=== PATIENT | male | born 1975 | race Two or more races ===

== ENCOUNTER → 2019-08-04 | Outpatient (CLI) | payer OTHER ==
[2019-08-04 09:34] LABS: BASO % 1 % (0-3); EOS # 0.1 x10^3/uL (0.0-0.7); EOS % 1 % (0-3); HEMATOCRIT 42.7 % (39.0-53.0); HEMOGLOBIN 14.4 g/dL (13.0-17.5); LYMPH # 2.3 x10^3/uL (1.0-4.8); LYMPH % 42 % (24-48); MEAN CORPUSCULAR HEMOGLOBIN 30 pg (25-35); MEAN CORPUSCULAR HGB CONC 34 g/dL (31-37); MEAN CORPUSCULAR VOLUME 90 fL (79-100); MONO # 0.5 x10^3/uL (0.0-1.1); MONO % 9 % (0-9); NEUT # 2.6 x10^3/uL (1.8-7.7); NEUT % 47 % (31-73); PLATELET COUNT 226 x10^3/uL (140-400); RED BLOOD COUNT 4.75 x10^6/uL (4.30-5.70); RED CELL DISTRIBUTION WIDTH 13.1 % (11.5-14.5); WHITE BLOOD COUNT 5.5 x10^3/uL (4.0-11.0)
[2019-08-04 09:59] LABS: ALBUMIN/GLOBULIN RATIO 1.2 (1.0-1.7); CHOLESTEROL/HDL RATIO 3.1; CREATININE 1.3 mg/dL (0.7-1.3); GFR 60.2; POTASSIUM 4.1 mmol/L (3.5-5.1); TOTAL BILIRUBIN 2.2 mg/dL (0.2-1.0); TOTAL PROTEIN 7.4 g/dL (6.4-8.2)
[2019-08-04 10:14] LABS: FREE T4 0.79 ng/dL (0.76-1.46); THYROID STIM HORMONE (TSH) 6.621 uIU/mL (0.358-3.74)
[2019-08-04 18:09] LABS: T3 TOTAL 80 ng/dL (71-180); TESTOSTERONE TOTAL 415 ng/dL (264-916); THYROPEROXIDASE ANTIBODY 167 IU/mL (0-34)
== END | disposition home or self-care (01) ==
LOC: LAB 08:55
PROVIDERS: ATTEND Family Medicine
DX: Z13.220 Encounter for screening for lipoid disorders (principal); E03.9 Hypothyroidism, unspecified; E80.4 Gilbert syndrome; R53.83 Other fatigue
CPT/HCPCS: 36415; 80053; 80061; 84403; 84439; 84443; 84480; 84481; 85025; 86376

== ENCOUNTER → 2019-09-15 | Outpatient (CLI) | payer OTHER ==
--- NOTE | 2019-09-15 15:40 | RAD ---
MR of the right lower extremity HISTORY: Gastrocnemius tendon strain. TECHNIQUE: Routine multiplanar sequences are obtained through the region of the calf. FINDINGS: The exam is centered at the proximal through mid tibia. Minimal hazy edema signal within the medial soleus muscle and within the medial lateral gastrocnemius muscle. No evidence of intramuscular rupture or tear. No organized hematoma. No significant intermuscular fluid or blood product accumulation. No evidence of acute fracture or aggressive bone destruction. No evidence of periosteal reaction. Small suprapatellar joint effusion is seen. IMPRESSION: 1. Mild edema within the posterior compartment calf musculature, suggesting a mild strain or contusion. No evidence of muscle tear or hematoma. 2. No acute bone abnormality. Electronically signed by: Don Pendleton MD (09/15/2019 3:37 PM) [id number]
== END | disposition home or self-care (01) ==
LOC: MRI 14:11
PROVIDERS: ATTEND Orthopaedic Surgery
DX: S86.111A Strain of other muscle(s) and tendon(s) of posterior muscle group at lower leg level, right leg, initial encounter (principal); M25.461 Effusion, right knee; X58.XXXA Exposure to other specified factors, initial encounter; Y93.89 Activity, other specified; Y92.89 Other specified places as the place of occurrence of the external cause; Y99.8 Other external cause status
CPT/HCPCS: 73718

== ENCOUNTER → 2019-10-07 | Outpatient (CLI) | payer OTHER ==
[2019-10-07 09:50] LABS: CHOLESTEROL/HDL RATIO 2.8
[2019-10-07 09:56] LABS: FREE T4 1.13 ng/dL (0.76-1.46); THYROID STIM HORMONE (TSH) 0.79 uIU/mL (0.358-3.74)
== END | disposition home or self-care (01) ==
LOC: LAB 08:45
PROVIDERS: ATTEND Family Medicine
DX: E03.9 Hypothyroidism, unspecified (principal); E78.00 Pure hypercholesterolemia, unspecified
CPT/HCPCS: 36415; 80061; 84439; 84443; 84480; 84481

== ENCOUNTER → 2019-12-30 | Outpatient (CLI) | payer OTHER ==
[2019-12-30 10:17] LABS: FREE T4 0.81 ng/dL (0.76-1.46); THYROID STIM HORMONE (TSH) 34.468 uIU/mL (0.358-3.74)
== END | disposition home or self-care (01) ==
LOC: LAB 09:27
PROVIDERS: ATTEND Family Medicine
DX: E03.9 Hypothyroidism, unspecified (principal)
CPT/HCPCS: 36415; 84439; 84443

== ENCOUNTER → 2020-03-02 | Outpatient (CLI) | payer OTHER ==
[2020-03-02 11:43] LABS: FREE T4 1.15 ng/dL (0.76-1.46); THYROID STIM HORMONE (TSH) 3.622 uIU/mL (0.358-3.74)
== END ==
LOC: LAB 11:03
PROVIDERS: ATTEND Family Medicine
DX: E03.9 Hypothyroidism, unspecified (principal)
CPT/HCPCS: 36415; 84439; 84443; 86376

== ENCOUNTER → 2020-06-02 | Outpatient (CLI) | payer OTHER ==
[2020-06-02 10:14] LABS: FREE T4 1.15 ng/dL (0.76-1.46); THYROID STIM HORMONE (TSH) 1.297 uIU/mL (0.358-3.74)
--- NOTE | 2020-06-02 13:52 | RAD ---
KNEE BILAT 4V 06/02/2020 10:22 AM INDICATION: Anterior medial knee pain with history of ACL repair COMPARISON: None available. TECHNIQUE: 4 views of the right and 4 views of the left knee are provided. FINDINGS/ IMPRESSION: Left knee: Post surgical changes are identified from ACL repair alignment of the knee joint appears normal. No significant knee joint effusion. No acute fracture or dislocation. Joint spaces are maintained. Right knee: No significant knee joint effusion. There is no acute fracture or dislocation. Joint spaces are maintained. Bone mineralization is within normal limits. Regional soft tissues are within normal limits. There is no soft tissue gas or osseous erosion. No radiopaque foreign body. Electronically signed by: Marcela Meade MD (06/02/2020 1:49 PM) [id number]
== END | disposition home or self-care (01) ==
LOC: LAB 08:57
PROVIDERS: ATTEND Family Medicine
DX: E03.9 Hypothyroidism, unspecified (principal); M25.569 Pain in unspecified knee; M25.561 Pain in right knee; M25.562 Pain in left knee; Z87.828 Personal history of other (healed) physical injury and trauma
CPT/HCPCS: 36415; 73564; 84439; 84443

== ENCOUNTER → 2020-12-08 | Outpatient (CLI) | payer OTHER ==
[2020-12-08 08:57] LABS: BASO # 0.1 x10^3/uL (0.0-0.2); BASO % 1 % (0-3); EOS # 0.1 x10^3/uL (0.0-0.7); EOS % 1 % (0-3); HEMATOCRIT 42.2 % (39.0-53.0); HEMOGLOBIN 14.2 g/dL (13.0-17.5); LYMPH # 2.7 x10^3/uL (1.0-4.8); LYMPH % 34 % (24-48); MEAN CORPUSCULAR HEMOGLOBIN 29 pg (25-35); MEAN CORPUSCULAR HGB CONC 34 g/dL (31-37); MEAN CORPUSCULAR VOLUME 88 fL (79-100); MONO # 0.8 x10^3/uL (0.0-1.1); MONO % 10 % (0-9); NEUT # 4.5 x10^3/uL (1.8-7.7); NEUT % 55 % (31-73); PLATELET COUNT 274 x10^3/uL (140-400); RED BLOOD COUNT 4.83 x10^6/uL (4.30-5.70); RED CELL DISTRIBUTION WIDTH 13.2 % (11.5-14.5); WHITE BLOOD COUNT 8.1 x10^3/uL (4.0-11.0)
[2020-12-08 09:14] LABS: ALBUMIN 3.9 g/dL (3.4-5.0); ALBUMIN/GLOBULIN RATIO 1.2 (1.0-1.7); CALCIUM 8.8 mg/dL (8.5-10.1); CREATININE 1.3 mg/dL (0.7-1.3); TOTAL BILIRUBIN 1.6 mg/dL (0.2-1.0); TOTAL PROTEIN 7.1 g/dL (6.4-8.2)
[2020-12-08 09:28] LABS: FREE T4 0.9 ng/dL (0.76-1.46); THYROID STIM HORMONE (TSH) 1.891 uIU/mL (0.358-3.74)
--- NOTE | 2020-12-08 09:57 | RAD ---
Abdominal ultrasound without comparison for left-sided pain, right-sided pain. Technique and findings: Real-time grayscale and color Doppler evaluation of the abdominal organs is p erformed. The liver measures 15.6 cm and is normal in appearance with no intra or extra hepatic bilia ry ductal dilatation. Common bile duct measures 2 mm in diameter. Gallbladder is normal with no shado wing stones or sludge and no sonographic Glasgow sign. Visualized portions the pancreas are normal. Th e aorta is nonaneurysmal. The IVC is patent. The right kidney measures 10.8 x 4.6 cm and in the left measures 11.0 x 5.0 cm. No hydronephrosis or focal parenchymal abnormality of either kidney. The sple en measures 9 cm and is normal in appearance as well. There is no ascites. IMPRESSION: 1. No sonographically discernible abdominal abnormality. Electronically signed by: Lenny Yan MD (12/08/2020 9:55 AM) [id number]
[2020-12-08 14:12] LABS: TESTOSTERONE TOTAL 365 ng/dL (264-916)
== END ==
LOC: US 08:27
PROVIDERS: ATTEND Family Medicine
DX: E03.9 Hypothyroidism, unspecified (principal); E78.00 Pure hypercholesterolemia, unspecified; E80.4 Gilbert syndrome; R53.83 Other fatigue
CPT/HCPCS: 36415; 76700; 80053; 80061; 82607; 82746; 84403; 84439; 84443; 85025; 85651

== ENCOUNTER → 2022-01-18 | Outpatient (CLI) | payer OTHER ==
[2022-01-18 09:30] LABS: BASO % 1 % (0-3); EOS # 0.1 x10^3/uL (0.0-0.7); EOS % 2 % (0-3); HEMATOCRIT 44.6 % (39.0-53.0); HEMOGLOBIN 15.1 g/dL (13.0-17.5); LYMPH # 2.1 x10^3/uL (1.0-4.8); LYMPH % 37 % (24-48); MEAN CORPUSCULAR HEMOGLOBIN 30 pg (25-35); MEAN CORPUSCULAR HGB CONC 34 g/dL (31-37); MEAN CORPUSCULAR VOLUME 88 fL (79-100); MONO # 0.5 x10^3/uL (0.0-1.1); MONO % 9 % (0-9); NEUT # 2.8 x10^3/uL (1.8-7.7); NEUT % 50 % (31-73); PLATELET COUNT 260 x10^3/uL (140-400); RED BLOOD COUNT 5.08 x10^6/uL (4.30-5.70); RED CELL DISTRIBUTION WIDTH 13.1 % (11.5-14.5); WHITE BLOOD COUNT 5.7 x10^3/uL (4.0-11.0)
[2022-01-18 09:38] LABS: ALBUMIN 4.1 g/dL (3.4-5.0); ALBUMIN/GLOBULIN RATIO 1.3 (1.0-1.7); CALCIUM 9.4 mg/dL (8.5-10.1); CREATININE 1.4 mg/dL (0.7-1.3); GFR 54.8; POTASSIUM 4.3 mmol/L (3.5-5.1); TOTAL BILIRUBIN 1.9 mg/dL (0.2-1.0); TOTAL PROTEIN 7.3 g/dL (6.4-8.2)
[2022-01-18 09:48] LABS: FREE T4 0.9 ng/dL (0.76-1.46); THYROID STIM HORMONE (TSH) 3.679 uIU/mL (0.358-3.74)
--- NOTE | 2022-01-18 13:36 | RAD ---
EXAM: Bilateral knees 3 views. HISTORY: Bilateral knee pain, runner. COMPARISON: None. FINDINGS: On the left, there are changes of anterior cruciate ligament reconstruction. Joint spaces a nd alignment are maintained. There is no joint effusion. On the right, no fractures are identified. Joint spaces and alignment are maintained. There is no prisca nt effusion. IMPRESSION: 1. Left anterior cruciate ligament reconstruction. No degenerative changes identified. Electronically signed by: Josselin Quinn MD (01/18/2022 1:34 PM) [id number]
== END ==
LOC: LAB 08:49
PROVIDERS: ATTEND Family Medicine
DX: R53.83 Other fatigue (principal); E03.9 Hypothyroidism, unspecified; M25.561 Pain in right knee; M25.562 Pain in left knee
CPT/HCPCS: 80053; 84402; 84403; 84439; 84443; 85025; 73562-50

== ENCOUNTER → 2022-01-27 | Outpatient (CLI) | payer OTHER ==
--- NOTE | 2022-01-27 12:42 | RAD ---
EXAMINATION: Magnetic resonance imaging (MRI) of the brain and brainstem without contrast 01/27/2022 10 :27 AM HISTORY: Noninterpretable episodic headache TECHNIQUE: Multiplanar multi-weighted MRI of the brain and brainstem was performed without intravenou s contrast using the general brain protocol. COMPARISON: None available. FINDINGS: The scalp and calvarium are normal. The superior sagittal sinus demonstrates normal venous flow. The corpus callosum is normal in shape and signal intensity. The posterior fossa is unremarkable. The p ituitary and sella are normal. The brainstem and craniocervical junction are unremarkable. Diffusion weighted images reveal no hyperintensities to suggest acute cerebral infarction. The suscep tibility weighted sequences reveal no evidence of acute or chronic hemorrhage. The ventricles are nor mal in size and position without evidence of hydrocephalus. Tiny mucus retention cyst identified in the right maxillary sinus. The visualized portions of the ma stoids are unremarkable. The orbits appear normal. Normal flow voids are demonstrated in the carotid arteries and basilar artery. Mild ectasia of the right terminal ICA. IMPRESSION: No evidence for acute or subacute ischemia. Mild ectasia of the right carotid terminus measuring up to [address] Angiography of the head could be of benefit for further characterization. Electronically signed by: Marcela Meade MD (01/27/2022 12:40 PM) [facility]
== END ==
LOC: MRI 09:55
PROVIDERS: ATTEND Family Medicine
DX: R51.9 Headache, unspecified (principal); I77.89 Other specified disorders of arteries and arterioles
CPT/HCPCS: 70551

== ENCOUNTER → 2022-02-08 | Outpatient (CLI) | payer OTHER ==
--- NOTE | 2022-02-08 15:59 | RAD ---
DIAGNOSTIC BILATERAL BREAST MAMMOGRAM AND RIGHT BREAST ULTRASOUND TECHNIQUE: Bilateral digital 2-D mammography and routine CC and MLO projections with additional full field right ML view. Grayscale and color doppler ultrasound of the right breast. INDICATION: Palpable lower outer right breast mass COMPARISON: None available. FINDINGS: Breast Density: Category A: The breasts are predominantly fatty. Bilateral mammography demonstrates no suspicious mass, calcification or architectural distortion. A s ymptom marker is present in the slightly lower outer right breast. No gynecomastia. Ultrasound of the right breast in the area of concern demonstrates a 7:00 radial 1 cm from the nipple ovoid, parallel orientation circumscribed mass measuring 3.4 x 1.3 x 2.1 cm with echogenicity slight ly increased and complexity decreased compared to adjacent subcutaneous fat. IMPRESSION: 1. Circumscribed ovoid subcutaneous mass in the right breast most compatible with a lipoma. ASSESSMENT: BI-RADS 2: Benign. Recommendation: No routine follow-up is required. Consider surgical consultation for excision of prob able lipoma if desired. The facility will notify the patient of the results via mail. Patient information will be entered int o the mammography reminder system with a target recall date for the next mammogram. A reminder letter will be generated by the facility. Electronically signed by: Edwar Ghotra MD (02/08/2022 1:26 PM) [id number]
== END ==
LOC: US 12:39
PROVIDERS: ATTEND Family Medicine
DX: N63.13 Unspecified lump in the right breast, lower outer quadrant (principal)
CPT/HCPCS: 76641; 77066